=== PATIENT | male | born 1950 | race Hispanic/Latino ===

== ENCOUNTER 2017-09-21 10:33 | Day surgery (SDC) | payer MEDICARE ==
[2017-09-21] VITALS (9 sets, daily range): BP systolic 114–142; BP diastolic 71–88
[~2017-09-21] VITALS: Ht 182.9 cm; Wt 99.8 kg
[~2017-09-21 10:33] MED LIST: AMBIEN CR6.25 MG PO; CIALIS5 MG PO; LIPITOR10 M1 PO; NATURE THROI PO; URIBEL118 MG PO; ZESTRIL5 M1 PO; [UNRECOGNIZED DRUG - OTHER] PO
[2017-09-21 11:07] LABS: URINE BILIRUBIN - DIPSTICK NEGATIVE (NEGATIVE); URINE BLOOD DIPSTICK TRACE-INTACT (NEGATIVE); URINE COLOR YELLOW; URINE GLUCOSE - DIPSTICK NEGATIVE (NEGATIVE); URINE KETONE NEGATIVE (NEGATIVE); URINE NITRITE - DIPSTICK NEGATIVE (Negative); URINE PH 7.5 (4.5-8.0); URINE PROTEIN - DIPSTICK NEGATIVE (NEG-TRACE); URINE UROBILINOGEN - DIPSTICK 0.2 E.U./dL (0.2)
[2017-09-21 11:08] LABS: URINE CLARITY CLEAR; URINE LEUK ESTERASE MODERATE (NEGATIVE)
[2017-09-21 11:23] LABS: URINE BACTERIA FEW hpf; URINE SQUAMOUS EPITHELIAL CELL FEW EPI/hpf (0-FEW)
[2017-09-21 11:28] LABS: HEMATOCRIT 49.3 % (39.0-50.0); HEMOGLOBIN 16.5 g/dl (14.0-18.0); IMMATURE GRANULOCYTES 0.4 % (0.0-1.0); MEAN CELL VOLUME 89.8 fL CALC (80.0-100.0); MEAN CORPUSCULAR HGB 30.1 pG CALC (26.0-32.0); MEAN CORPUSCULAR HGB CONC 33.5 g/L CALC (32.0-36.0); NEUT# 2.9 thou/uL (1.82-7.42); RED BLOOD COUNT 5.49 mill/uL (4.70-6.10); RED CELL DISTRI WIDTH 13.2 % (11.5-15.5)
[2017-09-21 11:43] LABS: ACT PARTIAL THROMBO TIME 28.8 SECONDS (20.0-32.5); ALBUMIN 4.2 g/dL (3.2-5.0); ALKALINE PHOSPHATASE 62 u/l (38-126); ANION GAP 13 (6-22 (CALC)); BILIRUBIN, TOTAL 0.8 mg/dL (0.0-1.4); BUN 14 mg/dL (8-23); BUN/CREATININE RATIO 18 (12-20 (CALC)); CARBON DIOXIDE 23 mmol/l (22-30); CHLORIDE 107 mmol/l (95-108); CREATININE 0.8 mg/dL (0.7-1.3); GFR > 60 ML/MIN (>=60 (CALC)); GFR FOR AFR.AMER. > 60 ML/MIN (>=60 (CALC)); POTASSIUM 4.1 mmol/l (3.5-5.1); PROTHROMBIN TIME 10.9 SECONDS (9.0-12.5); SGOT/AST 25 u/l (19-48); SGPT/ALT 45 u/l (11-66); SODIUM 140 mmol/l (137-146); TOTAL PROTEIN 7.2 g/dL (6.3-8.2)
--- NOTE | 2017-09-21 17:14 | NUR ---
VOMITTED COPIOUS AMOUNT CLEAR LIQUID, ANTIEMETIC GIVEN.
--- NOTE | 2017-09-21 17:16 | NUR ---
REPORT RECEIVED FROM DENNIS PT ARRIVED ON UNIT @ 1430 WITH PACU STAFF VIA STRETCHER AND TRANSFERRED TO BED. ALERT AND ORIENTED X 4, 3-WAY CATHETER IN PLACE WITH CBI IN PROGRESS, DRAINAGE BLOODY RED WITH FULL DRAINAGE BAG AT THIS TIME. PT REPORTS FEELING CLOTS PASSING UOT URETHRA, DRAINAGE SLOWED, BLADDER IRRIGATED AND 2 LARGE CLOTS ASPIRATED IN ADDITION TO LARGE CLOTS FROM URETHRA. ORIENTED TO ROOM AND CALL CORTES, WILL CONTINUE TO MONITOR AND ADDRESS NEEDS.
--- NOTE | 2017-09-21 19:00 | NUR ---
RECEIVED CHANGE OF SHIFT REPORT FROM HEIKE ROSENBERG. PT ALERT AND ORIENTED AND LUING IN BED. CII RUNNING WIDE OPEN WITH BRIGHT RED OUTPUT. PT DENIES PAIN AND DISCOMFORT AT THIS TIME. NO PAARENT ACUTE DISTRESS NOTED AT THIS TIME. WILL CONTINUE TO MONITOR.
--- NOTE | 2017-09-22 02:20 | NUR ---
PT C/O OF PRESSURE TO LOWER ABD. CBI SEEMS NOT TO BE FLOWING. IRRIGATED CATHETER AND MODERATE AMOUNT OF CLOTS REMOVED. PT STATES HE'S FEELING MUCH BETTER.
[2017-09-22 04:27] VITALS: BP 125/74
--- NOTE | 2017-09-22 04:28 | NUR ---
NO APPARENT ACUTE CHANGES NOTED IN PT'S CONDITION DURING THE NIGHT.
[2017-09-22] MEDS ORDERED: TAMSULOSIN0.4 MG PO (05:30)
[2017-09-22] MEDS ORDERED: TRAMADOL HCL50 MG PO (05:30)
[2017-09-22] MEDS ORDERED: URIBEL118 MG PO (05:31)
[2017-09-22] MEDS ORDERED: VESICARE5 MG PO (05:31)
[2017-09-22] MEDS ORDERED: LEVAQUIN500 MG PO (05:32)
[2017-09-22 05:33] LABS: IMMATURE GRANULOCYTES 0.5 % (0.0-1.0); MEAN CELL VOLUME 90.3 fL CALC (80.0-100.0); MEAN CORPUSCULAR HGB 30.4 pG CALC (26.0-32.0); MEAN CORPUSCULAR HGB CONC 33.7 g/L CALC (32.0-36.0); NEUT# 5.54 thou/uL (1.82-7.42); RED BLOOD COUNT 4.11 mill/uL (4.70-6.10); RED CELL DISTRI WIDTH 13.3 % (11.5-15.5)
[2017-09-22 05:38] LABS: HEMATOCRIT 37.1 % (39.0-50.0); HEMOGLOBIN 12.5 g/dl (14.0-18.0)
[2017-09-22 05:43] LABS: MAGNESIUM 1.8 mg/dL (1.6-2.3)
[2017-09-22 05:47] LABS: ALBUMIN 3.1 g/dL (3.2-5.0)
--- NOTE | 2017-09-22 07:00 | NUR ---
SHIFT CHANGE REPORT FROM FREDDIE, PT AWAKE ALERT AND ORIENTED, IVF INFUSING, CBI IN PROGRESS WITH BRIGHT RED DRAINAGE. FREDDIE REPORTED DR MORROW ROUNDED WITH PT THIS AM AND SAID IT WAS OK TO D/C WITH CRANBERRY COLOR DRAINAGE HOWEVER, IT HAS NOT BEEN CRANBERRY BUT DARK RED. WILL CONTINUE TO MONITOR AND ADDRESS NEEDS.
[2017-09-22 09:02] VITALS: BP 127/70
--- NOTE | 2017-09-22 12:22 | NUR ---
CIB DRAINAGE BLOODY RED, STOPPED AT 1030, DRAINAGE STILL DARK RED, DR MORROW NOTIFIED, ORDERED TO RESTART CBI, NO DRAINAGE OUT AND PT IN PAIN/PRESSURE, MANUAL IRRIGATION DONE, SEVERAL LARGE CLOTS MANUALLY ASPIRATED, FREE FLOW BEGAN AGAIN WITH LIGHT PINK DRAINAGE, WILL CONTINUE TO MONITOR.
--- NOTE | 2017-09-22 12:40 | NUR ---
CBI RESTARTED @ [address] MORROW'S ORDER, WILL CONTINUE TO MONITOR, PT AMBULATED IN ROOM AND SAT UP IN CHAIR FOR 2 HOURS THIS AM BUT RESTING IN BED NOW. THERE WAS DROPS OF BLOOD ALL OVER FLOOR FROM PENIS DURING AMBULATION, CAMERON WAS PLACED AT SITE FOR ABSORBTION.
[2017-09-22 16:44] VITALS: BP 145/87
--- NOTE | 2017-09-22 17:30 | NUR ---
DR MORROW ORDERED PT TO STAY TONIGHT FOR FURTHER OBSERVATION, ALSO CONSULTED WITH FRETTED INSTRUMENT REPAIRER TO FOLLOW CARE.
--- NOTE | 2017-09-22 17:53 | NUR ---
DR MORROW CALLED TO INQUIRE ABOUT PT'S CONDITION, INFORMED OF CONTINUOUS DARK RED BLEEDING AND BLOCKING CLOTS, ADVISED TO RESTART CBI AND KEEP OPEN TILL CLEAR, WILL CONTINUE TO MONITOR.
[2017-09-22 19:00] VITALS: BP 120/70
--- NOTE | 2017-09-22 20:00 | NUR ---
BEDSIDE REPORT RECEIVED FROM HEIKE ROSENBERG. PT SITTING UP IN BED WATCHING TV; ALERT AND ORIENTED. DENIES PAIN CURRENTLY. RESPIRATIONS EVEN AND UNLABORED ON ROOM AIR. CBI IN PROGRESS, OUTPUT CURRENTLY DE SOUZA RED AND CLEAR. PT STATES THAT WHEN HE HAS BLADDER SPASMS BLOODY URINE EXITS FROM AROUND THE CATHETER AT URINARY MEATUS. PLAN OF CARE DISCUSSED. PT ENCOURAGED TO VERBALIZE CONCERNS. STATES UNDERSTANDING. SAFETY MEASURES IN PLACE. CALL LIGHT WITHIN REACH.
--- NOTE | 2017-09-22 20:01 | NUR ---
COPIOUS AMOUNT BLOODY DRAINAGE CONTINUE TO SEEP AROUND CATHETER AND DOWN URETHRA EXITING PENIS, CAMERON SPONGES PLACED AT TIP OF PENIS AND SATURATES IN SHORT PERIOD OF TIME, ABD PAD APPLIED @ 1950, NIGHT RN WILL CONTINUE TO MONITOR.
--- NOTE | 2017-09-22 22:00 | NUR ---
URINE IN CATHETER TUBING CURRENTLY PINK AND CLEAR. CDI DISCONTINUED. BENTYL GIVEN AT THIS TIME FOR BLADDER SPASMS; URINE CONTINUES TO LEAK AROUND CATHETER IN MODERATE AMOUNTS. AFTER D/C OF CBI, OUTPUT WAS MINIMAL; 3 WAY MONTES IRRIGATED WITH NS; MONTES IRRIGATED EASILY WITH FEW SMALL CLOTS; PT TOLERATED WELL. WILL CONTINUE TO MONITOR URINARY OUTPUT. DE SOUZA RED URINE CURRENTLY IN BEDSIDE DRAINAGE BAG.
--- NOTE | 2017-09-22 23:00 | NUR ---
PT STATES THAT HE FEELS BLOATED AND HAS ABDOMINAL TENDERNESS; MINIMAL ABDOMINAL DISTENTION NOTED. BLADDER SCAN REPORTS 169 ML OF URINE. ORAL INTAKE ENCOURAGED.
--- NOTE | 2017-09-23 | NUR ---
150ML IN BSDB AT THIS TIME; CATHETER TUBING HAS DE SOUZA RED URINE WITH SEDIMENT AND SMALL CLOTS. PT REPORTS ONLY ONE BLADDER SPASM IN THE LAST HOUR THAT WAS NOT STRONG THEY HAD BEEN. BLOODY URINE DID LEAK AROUND CATHETER DURING THIS SPASM. PT REPOSITIONED ONTO LEFT SIDE TO SLEEP. WILL CONTINUE TO MONITOR. SAFETY MEASURES IN PLACE. CALL LIGHT WITHIN REACH.
--- NOTE | 2017-09-23 01:39 | NUR ---
PT HAS HAD A TOTAL URINE OUTPUT OF 175 ML SINCE 2199; AN ADEQUATE AMOUNT. BLADDER SPASMS REMAIN MINIMAL AND LESS PAINFUL. MINIMAL LEAKAGE FROM URINARY MEATUS. DRIANAGE IS LESS CLEAR, MORE CLOUDY DARK RED/ORANGE WITH SMALL AMOUNT OF SEDIMENT. REPEAT BLADDER SCAN REPORTS 176 ML OF URINE CURRENTLY IN BLADDER. PT IS COMFORTABLE AND PLEASANT. WILL CONTINUE TO MONITOR.
--- NOTE | 2017-09-23 03:50 | NUR ---
DR. MORROW CALLED FOR UPDATE. REPORT GIVEN TO MD. NEW ORDERS TO CONTINUE IV FLUIDS, GIVE AN ADDITIONAL DOSE OF LASIX AND START PT ON OXYBUTIN PO TID AND GIVE ONE DOSE NOW. ALL MEDICATIONS ADMINISTERED ORDERED AND BENTYL FOR BLADDER SPASMS. PT INFORMED OF NEW ORDERS AND EDUCATED ON MEDICATIONS; SHON ANSWERED TO SATISFACTION. NO REQUESTS OR CONCERNS AT THIS TIME. MONTES CONTINUES TO DRAIN DARK RED URINE. SAFETY MEASURES IN PLACE. CALL LIGHT WITHIN REACH.
[2017-09-23 04:46] VITALS: BP 111/65
[2017-09-23 05:04] LABS: HEMATOCRIT 34.6 % (39.0-50.0); HEMOGLOBIN 11.7 g/dl (14.0-18.0); IMMATURE GRANULOCYTES 0.4 % (0.0-1.0); MEAN CELL VOLUME 89.4 fL CALC (80.0-100.0); MEAN CORPUSCULAR HGB 30.2 pG CALC (26.0-32.0); MEAN CORPUSCULAR HGB CONC 33.8 g/L CALC (32.0-36.0); NEUT# 4.47 thou/uL (1.82-7.42); RED BLOOD COUNT 3.87 mill/uL (4.70-6.10); RED CELL DISTRI WIDTH 13.6 % (11.5-15.5)
[2017-09-23 05:21] LABS: ALBUMIN 3.2 g/dL (3.2-5.0); ALKALINE PHOSPHATASE 48 u/l (38-126); BILIRUBIN, TOTAL 0.6 mg/dL (0.0-1.4); BUN 11 mg/dL (8-23); BUN/CREATININE RATIO 12 (12-20 (CALC)); CHLORIDE 100 mmol/l (95-108); CREATININE 0.9 mg/dL (0.7-1.3); GFR > 60 ML/MIN (>=60 (CALC)); GFR FOR AFR.AMER. > 60 ML/MIN (>=60 (CALC)); MAGNESIUM 1.9 mg/dL (1.6-2.3); POTASSIUM 3.7 mmol/l (3.5-5.1); SGOT/AST 19 u/l (19-48); SGPT/ALT 32 u/l (11-66); SODIUM 134 mmol/l (137-146)
[2017-09-23 05:25] LABS: ANION GAP 8 (6-22 (CALC)); CARBON DIOXIDE 30 mmol/l (22-30); TOTAL PROTEIN 5.7 g/dL (6.3-8.2)
--- NOTE | 2017-09-23 07:31 | NUR ---
SHIFT CHANGE REPORT FROM SHAW, PT SLEEPING COMFORTABLY, BREATHING DEEP AND NON-LABORED, NO SIGN DISCOMFORT, CALL CORTES IN REACH.
--- NOTE | 2017-09-23 07:32 | NUR ---
PT AWAKE AND ALERT, ASSISTED TO BR, LITTLE UNSTEADY NOW HE JUST AWAKENED, WILL CONTINUE TO MONITOR.
[2017-09-23 09:49] VITALS: BP 100/60
--- NOTE | 2017-09-23 10:38 | NUR ---
PT REPORTES SENSATION TO URINATE, STRAINS A LITTLE THEN URINE COMES POURING OUT AROUND CATHETER AND MINIMAL AMOUNT DRAINS IN CATHETER. ON ASSESSMENT THIS MORNING BED PAD AND LINEN WERE SATURATED. CATHETER WAS MANUALLY IRRIGATED AT THIS TIME BUT THERE WERE NO CLOTS OR TISSUE. PT IS REQUESTING TO HAVE CATHETER REMOVED FOR TRIAL URINATION SINCE HE KNOWS WHEN URINE IS COMING OUT BUT I INFORMED HIM THIS HAS TO BE THE UROLOGIST'S ORDER, WILL CONTINUE TO MONITOR AND ADDRESS NEEDS.
--- NOTE | 2017-09-23 12:08 | NUR ---
MONTES CATHETER REMOVED NOW @ 1205, 90 CC H2O ASPIRATED FROM BALLOON BEFORE REMOVAL OF CATHETER, CLOTS OBSERVED AT TIP OF CATHETER, DRAINAGE BLOODY, PT ADVISED TO DRING H2O
--- NOTE | 2017-09-23 12:43 | NUR ---
AMBULATING HALLWAYS AT THIS TIME.
--- NOTE | 2017-09-23 14:51 | NUR ---
PT URINATED 275CC DARK BLOODY URINE
[2017-09-23 15:21] VITALS: BP 137/87
--- NOTE | 2017-09-23 16:24 | NUR ---
PVR PERFORMED @ 1500 = 374 THEN AT 1617 = 460, SHAKER OPERATOR NOTIFIED
--- NOTE | 2017-09-23 17:23 | NUR ---
AFTER PVR EVALUATION, SANTOSH CABRERA INFORMED OF RESULT, CONTACTED , PT INFORMED, WE NOW AWAIT A RESPONSE WHAT IS THE NEXT STEP TO TAKE, WILL CONTINUE TO MONITOR.
--- NOTE | 2017-09-23 17:28 | NUR ---
PT URINATING VERY SMALL QUANTITIES FREQUENTLY, NO CLOTS SEEN, COLOR NOW IS CLEAR CRANBERRY.
--- NOTE | 2017-09-23 17:44 | NUR ---
DR MILLER HERE TO EVALUATE, PT URINATED 50CC NOW, BLADDER SCANNED = 540, DR DE LA VEGA IS CONTACTING [facility] FOR FURTHER PLANS, WILL CONTINUE TO MONITOR.
--- NOTE | 2017-09-23 19:00 | NUR ---
SPOKE TO DR VALADEZ AND DR MILLER REFERENCE PT UNABLE TO VOID AND HAS 500+CC ON BLADDER SCAN. RECEIVED ORDERS TO PLACE. 20FR MONTES.
--- NOTE | 2017-09-23 19:05 | NUR ---
PT URINATED 225 ML, PVR = 588 NOW, ORDERS FROM COVERNG UROOGIST TO INSERT 20F CATETER, WILL CONTINUE TO ADDRESS ORDERS.
--- NOTE | 2017-09-23 19:30 | NUR ---
20FR MONTES PLACED. SENT PT WITH MONTES BAG. INSTRUCTIONS GIVEN ON HOW TO CHANGE TO LEG BAG. PT VERBALIZED UNDERSTANDING. PT TOLERATED MONTES INSERTION WELL. MONETS WAS INSERTED USING STERILE TECHNIQUE.
--- NOTE | 2017-09-23 19:40 | NUR ---
DR MILLER NOTIFIED AND INSTRUCTED PT TO HAVE HOME HEALTH TOMORROW CALL DR MORROW/DR VALADEZ OFFICE FOR INSTRUCTION IF PT SHOULD HAVE MONTES REMOVED. PT VERBALIZED UNDERSTANDING.
--- NOTE | 2017-09-23 19:44 | NUR ---
Discharge instructions given. Patient verbalizes understanding of same. Discharged in stable condition via Wheelchair to Home with family. All belongings sent with pt.
== END 2017-09-23 19:45 | disposition home health service (06) ==
LOC: MS2 10:33 → ORM 10:33 → MS2 11:35 → ORM 11:45
PROVIDERS: ATTEND Urology
PROC: 0V508ZZ Destruction of Prostate, Via Natural or Artificial Opening Endoscopic (ICD-10-PCS; principal; 2017-09-21)
DX: N40.1 Benign prostatic hyperplasia with lower urinary tract symptoms (principal); R33.8 Other retention of urine; R39.12 Poor urinary stream; N52.9 Male erectile dysfunction, unspecified; I10 Essential (primary) hypertension; E78.5 Hyperlipidemia, unspecified; M19.90 Unspecified osteoarthritis, unspecified site; Z86.73 Personal history of transient ischemic attack (TIA), and cerebral infarction without residual deficits; Z87.891 Personal history of nicotine dependence; Z80.42 Family history of malignant neoplasm of prostate
CPT/HCPCS: C1769; J1956